=== PATIENT | male | born 1995 ===

== ENCOUNTER 2017-06-13 17:48 | Emergency (ER) | payer OTHER ==
[2017-06-13 17:48] VITALS: BMI 36.9
[2017-06-13 17:57] VITALS: TEMP 98.7; O2SAT 98
--- NOTE | 2017-06-13 18:57 | C.PDOC ---
History Of Present Illness 21 yo male come in for evaluation of Right upper eyelid swelling and redness gradually developed for past 2 days. Pt denies known trauma or injury, headache , dizziness, fever, chills, visual changes/blurry vision, eye discharge, contact use, denies any other active complaints. Ambulate to Ed for evaluation, not in any apparent distress. Time Seen by Provider: 06/13/17 18:28 Chief Complaint (Nursing): Eye Problem History Per: Patient Onset/Duration Of Symptoms: Gradual Past Medical History Reviewed: Historical Data, Nursing Documentation, Vital Signs Vital Signs: Last Vital Signs Temp 98.7 F 06/13/17 17:55 Pulse 84 06/13/17 19:07 Resp 16 06/13/17 19:07 BP 132/81 06/13/17 19:07 Pulse Ox 98 06/13/17 19:23 - Medical History PMH: No Chronic Diseases Surgical History: No Surg Hx - [facility] Procedures MYRINGOTOMY W INTUBATION (08/21/13) Family History: States: No Known Family Hx - Social History Hx Tobacco Use: No Hx Alcohol Use: No Hx Substance Use: No - Immunization History Hx Tetanus Toxoid Vaccination: No Hx Influenza Vaccination: No Hx Pneumococcal Vaccination: No Review Of Systems Except As Marked, All Systems Reviewed And Found Negative. Constitutional: Negative for: Fever, Chills Eyes: Positive for: Eyelid Inflammation. Negative for: Pain, Vision Change, Conjunctivae Inflammation, Redness ENT: Negative for: Ear Discharge, Nose Discharge, Throat Pain Cardiovascular: Negative for: Chest Pain Musculoskeletal: Negative for: Neck Pain Skin: Negative for: Rash Neurological: Negative for: Weakness, Numbness, Altered Mental Status, Headache , Dizziness Physical Exam - Physical Exam Appears: Well, Non-toxic, No Acute Distress Skin: Normal Color, Warm, No Rash, No Ecchymosis Head: Normacephalic Eye(s): bilateral: PERRL, EOMI (no pain or discomfort periorbital movement B/L) , right: Other Ear(s): Bilateral: Normal Nose: No Discharge Oral Mucosa: Moist, No Drooling, No Trismus Tongue: Normal Appearing Throat: Normal, No Erythema, No Exudate, No Drooling Neurological/Psych: Oriented x3, Normal Speech ED Course And Treatment O2 Sat by Pulse Oximetry: 98 Pulse Ox Interpretation: Normal Progress Note: On re-evaluation, pt is afebrile, hemodynamicaly stable. Non- toxic. Right eye: exam c/w upper eyelid chalazion. No blurry vision, no periorbital edema or eyrthema. No conjunctival injection or discharge. VA- standart range w/o correction. Pt advised on course of ds. re.f to f/u with opht in 1-2 days for re-evaluation. return to ED if any worsening or new changes. Disposition Counseled Patient/Family Regarding: Diagnosis, Need For Followup, Rx Given - Disposition Referrals: Mil Trevizo MD [Staff Provider] - Srini Aguirre MD [Staff Provider] - Disposition: HOME/ ROUTINE Disposition Time: 18:52 Condition: STABLE Additional Instructions: Warm compresses to area daily Take medication as prescribed Follow up with Ophthalmology in 1-2 days for re-evaluation. return to ED if nay worsening or new changes. Prescriptions: Neomycin/Polymyxin/Dexamethaso [Dexamethasone/Neomycin/Polymyxin 5 Ml] 2 drop LEFTEYE Q4 #1 bottle Instructions: [place] (ED) Forms: [employer] ([place]) - Clinical Impression Clinical Impression: Robb
[2017-06-13 19:10] VITALS: BP 132/81; PULSE 84; RESP 16
== END 2017-06-13 19:07 | disposition home or self-care (01) ==
LOC: C.ER 17:48
DX: H00.11 Chalazion right upper eyelid (principal)